=== PATIENT | female | born 2005 | race Caucasian/White ===

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

== ENCOUNTER 2024-01-11 21:44 | Emergency (ER) | payer SELFPAY ==
[2024-01-11 22:58] LABS: Pregu Control Background? CLEAR/WHITE (CLR/WHITE); Pregu Control Bar Appear? YES (CONTROL BAR)
[2024-01-11 23:03] LABS: Pregnancy Test - Urine (BHCG) POSITIVE (Negative)
== END 2024-01-11 23:21 | disposition home or self-care (01) ==
LOC: CSHERS 21:44
DX: O99.891 Other specified diseases and conditions complicating pregnancy (principal); R11.0 Nausea; O99.330 Smoking (tobacco) complicating pregnancy, unspecified trimester; F17.290 Nicotine dependence, other tobacco product, uncomplicated; Z3A.00 Weeks of gestation of pregnancy not specified
CPT/HCPCS: 81025; 99283

== ENCOUNTER 2024-01-15 10:01 | Emergency (ER) | payer MEDICAID, SELFPAY ==
[2024-01-15 11:01] LABS: #Basophils 0.02 10x3/uL (0.0-0.2); #Eosinophils 0.06 10x3/uL (0.0-0.5); #Monocytes 0.43 10x3/uL (0.0-1.1); #Neutrophils 6.17 10x3/uL (1.5-8.4); %Basophils 0.2 % (0.0-2.0); %Eosinophils 0.7 % (0.0-6.0); %Lymphocytes 23.5 % (18.0-47.0); %Monocytes 4.9 % (0.0-10.0); %Neutrophils 70.4 % (40.0-75.0); Hematocrit 32.2 % (34.9-44.5); Hemoglobin 10.5 g/dL (12.0-15.5); Mean Corpuscular HGB CONC 32.6 g/dL (32.0-36.0); Mean Corpuscular Hemoglobin 28.3 pg (27.0-33.0); Mean Corpuscular Volume 86.8 fL (81.6-98.3); Mean Platelet Volume 9.2 fL (7.4-10.4); Platelet Count 326 10x3/uL (150-450); RBC Distribution Width 13.5 % (11.5-14.5); Red Blood Cell (RBC) Count 3.71 10x6/uL (3.90-5.03); White Blood Cell (WBC) Count 8.8 10x3/uL (3.5-10.5)
[2024-01-15 11:28] LABS: Bilirubin Neg (Negative); Blood, Urine Negative (Negative); Clarity Clear (Clear); Glucose, Urine (Dipstick) Normal (Negative); Ketone, Urine Negative (Negative); Leukocyte Negative (Negative); Nitrite Negative (Negative); Protein, Urine (Dipstick) Negative (Neg-Trace); Urobilinogen Normal mg/dL (Less than 2)
[2024-01-15 11:46] LABS: Bacteria/HPF 2+ HPF (None Seen); CAUTI Indications for Culture Pelvic or flank pain; RBC/HPF None Seen HPF (0-3); Squamous Epithelial Greater than 50 HPF (0-3); WBC/HPF 0-3 HPF (0-3)
[2024-01-15 11:47] LABS: Urine Culture Reflex No No
== END 2024-01-15 12:05 | disposition home or self-care (01) ==
LOC: CSHERS 10:01
DX: O99.891 Other specified diseases and conditions complicating pregnancy (principal); R10.9 Unspecified abdominal pain; O99.331 Smoking (tobacco) complicating pregnancy, first trimester; F17.290 Nicotine dependence, other tobacco product, uncomplicated; Z3A.01 Less than 8 weeks gestation of pregnancy
CPT/HCPCS: 36415; 76856; 81001; 84702; 85025; 86900; 86901

== ENCOUNTER 2024-12-06 09:29 | Inpatient (IN) | payer OTHER ==
[2024-12-06] MEDS ORDERED: Iopamidol 370 76% 100 ML VIAL ONE (09:58)
[2024-12-06] MEDS ORDERED: Ketorolac Tromethamine 30 MG (1 mL) VIAL ONE (10:26)
[2024-12-06 10:47] LABS: #Basophils 0.03 10x3/uL (0.0-0.2); #Eosinophils 0.11 10x3/uL (0.0-0.5); #Monocytes 0.40 10x3/uL (0.0-1.1); #Neutrophils 5.89 10x3/uL (1.5-8.4); %Basophils 0.4 % (0.0-2.0); %Eosinophils 1.4 % (0.0-6.0); %Lymphocytes 17.3 % (18.0-47.0); %Monocytes 5.1 % (0.0-10.0); %Neutrophils 75.5 % (40.0-75.0); Hematocrit 32.6 % (34.9-44.5); Hemoglobin 10.0 g/dL (12.0-15.5); Mean Corpuscular Hemoglobin 23.6 pg (27.0-33.0); Mean Corpuscular Volume 76.9 fL (81.6-98.3); Platelet Count 522 10x3/uL (150-450); Red Blood Cell (RBC) Count 4.24 10x6/uL (3.90-5.03); White Blood Cell (WBC) Count 7.80 10x3/uL (3.5-10.5)
[2024-12-06 10:48] LABS: BHCG - Serum Negative (NEGATIVE); Pregs Control Background? CLEAR/WHITE (CLR/WHITE); Pregs Control Bar Appear? YES (CONTROL BAR)
[2024-12-06 10:57] LABS: ALT (SGPT) 528 U/L (Less than 34); AST (SGOT) 415 U/L (11-34); Albumin 4.3 g/dL (3.1-4.5); Alkaline Phosphatase 368 U/L (40-100); Anion Gap 15 mmol/L (10-20); BUN (Urea Nitrogen) 9 mg/dL (7.0-18.7); Bilirubin, Total 0.7 mg/dL (0.3-1.2); Calc. Creatinine Clearance 0 mL/min (70-130); Calcium 9.9 mg/dL (7.8-10.44); Carbon Dioxide 20 mmol/L (22-29); Chloride 108 mmol/L (98-107); Globulin 4.3 g/dL (2.4-3.5); Glucose 107 mg/dL (70-105); Lipase 21 U/L (8-78); Potassium 4.0 mmol/L (3.5-5.1); Sodium 139 mmol/L (136-145)
[2024-12-06 12:01] LABS: Glucose, Urine (Dipstick) Normal (Negative); Leukocyte 25 (Negative); Protein, Urine (Dipstick) 30 mg/dl (Neg-Trace); Specific Gravity, Urine 1.025 (1.005-1.030)
[2024-12-06 12:10] LABS: Acetaminophen Less than 10 mcg/mL (Less than 10)
[2024-12-06 12:18] LABS: Bacteria/HPF 1+ HPF (None Seen); CAUTI Indications for Culture Pelvic or flank pain; Mucous/LPF 1+ LPF (<2+); RBC/HPF None Seen HPF (0-3)
[2024-12-06 12:19] LABS: Urine Culture Reflex No No
[2024-12-06 12:26] LABS: Hep B Surf Ag Non-Reactive S/CO (NonReactive)
[2024-12-06 15:18] LABS: Hep A IgM AB NONREACTIVE (NonReactive); Hep A IgM S/CO 0.19 S/CO (0-0.79); Hep B Core IgM Index 0.68 S/CO (0-0.79); Hep C IgG Ab NONREACTIVE S/CO (NonReactive); Hep C Index 0.05 S/CO (0-0.79)
[2024-12-06] MEDS ORDERED: hydrALAZINE 20 MG/ML VIAL SLOW IVP PRN (16:07)
[2024-12-06] MEDS ORDERED: Glucagon 1 MG/ML KIT IM PRN (16:07)
[2024-12-06] MEDS ORDERED: Dextrose 50% Abboject 50 ML SYRINGE SLOW IVP PRN (16:07)
[2024-12-06] MEDS ORDERED: TETANUS, DIPHTHERIA TOX,ADULT (TDVAX) 0.5 ML VIAL IM ONE (16:07)
[2024-12-06] MEDS ORDERED: Ondansetron PF 4 MG/2 ML Vial IVP PRN (16:07)
[2024-12-06 16:12] VITALS: BMI 43.5
[2024-12-06] MEDS: Famotidine 20 MG TAB PO SCH (20:46)
[2024-12-06] MEDS: Acetaminophen 325 MG TAB PO PRN (20:46)
[2024-12-07 05:13] LABS: ALT (SGPT) 784 U/L (Less than 34); AST (SGOT) 479 U/L (11-34); Albumin 3.7 g/dL (3.1-4.5); Alkaline Phosphatase 280 U/L (40-100); Anion Gap 11 mmol/L (10-20); BUN (Urea Nitrogen) 7 mg/dL (7.0-18.7); Bilirubin, Total 1.5 mg/dL (0.3-1.2); Calc. Creatinine Clearance 280 mL/min (70-130); Calcium 9.1 mg/dL (7.8-10.44); Carbon Dioxide 22 mmol/L (22-29); Chloride 113 mmol/L (98-107); Globulin 3.5 g/dL (2.4-3.5); Glucose 89 mg/dL (70-105); Potassium 4.0 mmol/L (3.5-5.1); Sodium 142 mmol/L (136-145)
[2024-12-07] MEDS ORDERED: Bupivacaine/Epinephrine 0.25% 30 ML VIAL ONE (12:53)
[2024-12-07] MEDS ORDERED: Lidocaine 1% PF 5 ML VIAL ONE (13:13)
[2024-12-07] MEDS ORDERED: PROPOFOL 40 ML ONE (13:13)
[2024-12-07] MEDS ORDERED: Rocuronium Bromide 10 MG/ML (10ML VIAL) ONE (13:13)
[2024-12-07] MEDS ORDERED: CEFAZOLIN 2 GM VIAL ONE (13:57)
[2024-12-07] MEDS ORDERED: SUGAMMADEX SODIUM 200 MG/2 ML VIAL ONE (15:37)
[2024-12-07 16:54] VITALS: TEMP 97.9
[2024-12-07 18:34] VITALS: BP 105/61
== END 2024-12-07 19:17 | disposition home or self-care (01) | DRG 418 ==
LOC: CSHERS 09:29 → CSHTELE 13:09
PROVIDERS: ADMIT Surgery; ATTEND Surgery
PROC: 0FT44ZZ Resection of Gallbladder, Percutaneous Endoscopic Approach (ICD-10-PCS; principal; 2024-12-07)
PROC: BF532Z0 Other Imaging of Gallbladder and Bile Ducts using Fluorescing Agent, Intraoperative (ICD-10-PCS; 2024-12-07)
DX: K80.00 Calculus of gallbladder with acute cholecystitis without obstruction (principal); Z68.41 Body mass index [BMI] 40.0-44.9, adult; K76.0 Fatty (change of) liver, not elsewhere classified; F41.9 Anxiety disorder, unspecified; E66.01 Morbid (severe) obesity due to excess calories; F17.210 Nicotine dependence, cigarettes, uncomplicated; F17.290 Nicotine dependence, other tobacco product, uncomplicated; Z88.1 Allergy status to other antibiotic agents
CPT/HCPCS: 36415; 47532; 71045; 71275; 74177; 76705; 80053; 80074; 80143; 81001; 83690; 83880; 84703; 85025; 85379; 88304; 93005; 96361; 96374; 96375; 80307; C1889; J1885; J2704; J3010; J7030; Q9967; S2900